=== PATIENT | female | born 1990 | race American Indian/Alaskan Native ===

== ENCOUNTER 2021-11-30 13:12 | Emergency (ER) | payer MEDICAID ==
[2021-11-30] MEDS ORDERED: HYDROcodone/ACETAMINOPHEN 5-325 MG TAB PO ONE (14:51)
[2021-11-30] MEDS ORDERED: CYCLOBENZAPRINE 10 MG TAB PO ONE (14:51)
[2021-11-30] MEDS ORDERED: IBUPROFEN 800 MG TAB PO ONE (14:51)
--- NOTE | 2021-11-30 14:52 | Emergency Department Report ---
ED Upper Extremity Inj HPI - General Chief Complaint: Extremity Injury, Upper Stated Complaint: PAIN/NUMBNESS LT ARM Time Seen by Provider: 11/30/21 14:51 Source: patient, EMS Mode of arrival: Ambulatory Limitations: No Limitations - History of Present Illness Initial Comments: Patient is a 31-year-old female that comes to the emergency room with left arm tingling and neck pain. She states that she woke up like this initially 3 days ago. It gets better during the day but then in the morning she wakes up and she has a stiff neck. She thinks it is the pillow she is sleeping on. Patient has no focal neurodeficit. Cranial nerves are intact. She is ambulatory. No pronator drift. No facial weakness. Tongue is midline. Patient denies chest pain or shortness of breath. Denies abdominal pain or back pain. Denies dysuria or discharge. Patient denies fever or chills. Patient's blood sugar was elevated to 299. She states that she did not take her insulin this morning because she was feeling bad. I have instructed her to take the insulin. She denies any polyuria, polydipsia, abdominal pain. She is not tachycardic and not hypotensive. Complaint: Injury to:: left -: Sudden Other Extremity Injury: Shoulder: Left, Forearm: Left Place: home Improves With: immobilization Worsens With: movement of extremity Associated Symptoms: denies other symptoms - Related Data Previous Rx's Medication Instructions Recorded Last Taken Type Cyclobenzaprine [Flexeril] 10 mg PO TID PRN #10 tablet 11/30/21 Unknown Rx Ibuprofen [Motrin] 800 mg PO Q8HR PRN #30 tablet 11/30/21 Unknown Rx predniSONE [Deltasone] 20 mg PO DAILY #5 tablet 11/30/21 Unknown Rx Allergies Allergy/AdvReac Type Severity Reaction Status Date / Time No Known Allergies Allergy Verified 11/30/21 13:46 ED Review of Systems ROS: Stated complaint: PAIN/NUMBNESS LT ARM Other details as noted in HPI Comment: All other systems reviewed and negative ED Past Medical Hx - Past Medical History Previous Medical History?: Yes Hx Diabetes: Yes - Surgical History Past Surgical History?: No - Family History Family history: no significant - Social History Smoking Status: Never Smoker Substance Use Type: None - Medications Home Medications: Home Medications Medication Instructions Recorded Confirmed Last Taken Type Cyclobenzaprine [Flexeril] 10 mg PO TID PRN #10 tablet 11/30/21 Unknown Rx Ibuprofen [Motrin] 800 mg PO Q8HR PRN #30 tablet 11/30/21 Unknown Rx predniSONE [Deltasone] 20 mg PO DAILY #5 tablet 11/30/21 Unknown Rx ED Physical Exam - General Limitations: No Limitations General appearance: alert, in no apparent distress - Head Head exam: Present: atraumatic, normocephalic - Eye Eye exam: Present: normal appearance - ENT ENT exam: Present: mucous membranes moist - Neck Neck exam: Present: normal inspection - Respiratory Respiratory exam: Present: normal lung sounds bilaterally. Absent: respiratory distress - Cardiovascular Cardiovascular Exam: Present: regular rate, normal rhythm. Absent: systolic murmur, diastolic murmur, rubs, gallop - GI/Abdominal GI/Abdominal exam: Present: soft, normal bowel sounds - Extremities Exam Extremities exam: Present: normal inspection - Back Exam Back exam: Present: normal inspection - Neurological Exam Neurological exam: Present: alert, oriented X3 - Psychiatric Psychiatric exam: Present: normal affect, normal mood - Skin Skin exam: Present: warm, dry, intact, normal color. Absent: rash ED Course Vital Signs 11/30/21 13:45 Temperature 98.1 F Pulse Rate 90 Blood Pressure 150/90 [Left] O2 Sat by Pulse 98 Oximetry ED Medical Decision Making - Medical Decision Making Vital Signs 11/30/21 13:45 Temperature 98.1 F Pulse Rate 90 Blood Pressure 150/90 [Left] O2 Sat by Pulse 98 Oximetry Medicated for pain in the ER. She did get some relief from her pain medicines. I have given her Flexeril, Motrin and [place]. On discharge again patient has full range of motion is neurovascularly intact. Patient discharged home with discharge plan of care including diet, activity, medications and follow-up. She verbalizes understanding of discharge plan. - Differential Diagnosis Torticollis Critical care attestation.: If time is entered above; I have spent that time in minutes in the direct care of this critically ill patient, excluding procedure time. ED Disposition Clinical Impression: Torticollis, History of type 2 diabetes mellitus, Hyperglycemia Disposition: 01 HOME / SELF CARE / HOMELESS Is pt being admited?: No Does the pt Need Aspirin: No Condition: Stable Instructions: Acute Torticollis, Adult Additional Instructions: Warm compresses and baths will help. Medications as ordered today. If pain persist follow-up with PCP. Have given you referral below Take your insulin as prescribed. Referrals: FRANKLIN STROUD MD [Primary Care Provider] - 3-5 Days Time of Disposition: 15:09
[2021-11-30 15:59] VITALS: BP 140/84
== END 2021-11-30 15:59 | disposition home or self-care (01) ==
LOC: ED 13:12
DX: M43.6 Torticollis (principal); E11.65 Type 2 diabetes mellitus with hyperglycemia
CPT/HCPCS: 99283

== ENCOUNTER 2022-02-18 06:26 | Inpatient (IN) | payer MEDICAID ==
[2022-02-18 07:57] LABS: Basophils # (Auto) 0.1 K/mm3 (0.0-0.1); Basophils % (Auto) 0.5 % (0.0-1.8); Lymphocytes # (Auto) 1.5 K/mm3 (1.2-5.4); Lymphocytes % (Auto) 8.7 % (13.4-35.0); Mean Corpuscular HGB Conc 31 % (30-34); Mean Corpuscular Volume 104 fl (79-97); Monocytes # (Auto) 1.2 K/mm3 (0.0-0.8); Monocytes % (Auto) 6.7 % (0.0-7.3); Platelet Count 281 K/mm3 (140-440); Red Blood Count 4.99 M/mm3 (3.65-5.03); Red Cell Distribution Width 13.8 % (13.2-15.2)
[2022-02-18] MEDS ORDERED: fentaNYL 100 MCG/2 ML INJ IV ONE (07:59)
[2022-02-18] MEDS ORDERED: ONDANSETRON 4 MG/2 ML INJ IV ONE (08:00)
[2022-02-18 08:06] LABS: Hematocrit 51.8 % (30.3-42.9); Hemoglobin 16.2 gm/dl (10.1-14.3)
[2022-02-18] MEDS ORDERED: SODIUM CHLORIDE 0.9% 1000 ML 1,000 ML ONE (08:09)
[2022-02-18 08:20] LABS: Bacteria,Urine 1+ /HPF (Negative); Mucus,Urine FEW /HPF
[2022-02-18 08:20] LABS: Albumin 5.1 g/dL (3.9-5); Calcium 9.2 mg/dL (8.4-10.2)
[2022-02-18] MEDS ORDERED: SODIUM CHLORIDE 0.9% 1000 ML 1,000 ML IV ONE ×2 (08:29)
--- NOTE | 2022-02-18 08:38 | Emergency Department Report ---
HPI - General Chief Complaint: Hyperglycemia Time Seen by Provider: 02/18/22 08:13 - HPI HPI: Room 1 Patient 31-year-old female present with a chief complaint of shortness of breath and chest pain. Patient has a history of diabetes and states she ran out of insulin 4 days ago. Patient states since that time she has had sharp substernal chest pain and shortness of breath with has been constant. Patient admits to pleurisy. Patient denies history of cough or fever. Patient admits to polyuria and polydipsia. Patient admits to nausea vomiting ED Past Medical Hx - Past Medical History Previous Medical History?: Yes Hx Diabetes: Yes - Surgical History Past Surgical History?: No Additional Surgical History: Right thumb - Family History Family history: no significant - Social History Smoking Status: Former Smoker (Vape) Substance Use Type: None (Denies illicit drug use), Alcohol (Occasional) - Medications Home Medications: Home Medications Medication Instructions Recorded Confirmed Last Taken Type Cyclobenzaprine [Flexeril] 10 mg PO TID PRN #10 tablet 11/30/21 Unknown Rx Ibuprofen [Motrin] 800 mg PO Q8HR PRN #30 tablet 11/30/21 Unknown Rx predniSONE [Deltasone] 20 mg PO DAILY #5 tablet 11/30/21 Unknown Rx ED Review of Systems ROS: Stated complaint: HIGH BLOOD SUGAR Other details as noted in HPI Constitutional: denies: fever Eyes: denies: eye pain ENT: denies: throat pain Respiratory: shortness of breath. denies: cough Cardiovascular: chest pain Endocrine: no symptoms reported, increased thirst, increased urine Gastrointestinal: nausea, vomiting. denies: abdominal pain Genitourinary: denies: dysuria Musculoskeletal: denies: back pain Neurological: denies: headache Physical Exam - Physical Exam Vital Signs: Vital Signs 02/18/22 02/18/22 02/18/22 06:27 07:16 07:20 Temperature 98 F Pulse Rate 119 H 132 H Respiratory 22 31 H 27 H Rate Blood Pressure 175/81 174/83 O2 Sat by Pulse 100 Oximetry 02/18/22 02/18/22 02/18/22 07:26 07:30 07:36 Temperature Pulse Rate 125 H 122 H 126 H Respiratory 29 H 32 H 31 H Rate Blood Pressure 174/83 182/86 182/86 O2 Sat by Pulse Oximetry 07/11/0702/18/22 02/18/22 07:40 07:45 07:52 Temperature Pulse Rate 123 H 128 H 135 H Respiratory 25 H 35 H 24 Rate Blood Pressure 182/86 182/86 182/86 O2 Sat by Pulse Oximetry 02/18/22 02/18/22 02/18/22 07:56 08:00 08:06 Temperature Pulse Rate 123 H 117 H 120 H Respiratory 25 H 23 27 H Rate Blood Pressure 179/93 179/93 179/93 O2 Sat by Pulse 99 99 99 Oximetry 02/18/22 02/18/22 02/18/22 08:10 08:16 08:19 Temperature Pulse Rate 116 H 115 H Respiratory 24 20 22 Rate Blood Pressure 180/90 180/90 O2 Sat by Pulse 100 99 99 Oximetry 02/18/22 08:20 Temperature Pulse Rate 113 H Respiratory 22 Rate Blood Pressure 182/86 O2 Sat by Pulse 99 Oximetry Physical Exam: GENERAL: The patient is well-developed well-nourished female lying on stretcher appearing to be in mild discomfort. [] HEENT: Normocephalic. Atraumatic. Extraocular motions are intact. Patient has dry mucous membranes. NECK: Supple. Trachea midline CHEST/LUNGS: Clear to auscultation. There is no respiratory distress noted. HEART/CARDIOVASCULAR: Regular. There is tachycardia. There is no gallop rub or murmur. ABDOMEN: Abdomen is soft, nontender. Patient has normal bowel sounds. There is no abdominal distention. SKIN: There is no rash. There is no edema. There is no diaphoresis. NEURO: The patient is awake, alert, and oriented. The patient is cooperative. The patient has no focal neurologic deficits. The patient has normal speech. GCS 15 MUSCULOSKELETAL: There is no evidence of acute injury. ED Course Vital Signs 02/18/22 02/18/22 02/18/22 06:27 07:16 07:20 Temperature 98 F Pulse Rate 119 H 132 H Respiratory 22 31 H 27 H Rate Blood Pressure 175/81 174/83 O2 Sat by Pulse 100 Oximetry 02/18/22 02/18/22 02/18/22 07:26 07:30 07:36 Temperature Pulse Rate 125 H 122 H 126 H Respiratory 29 H 32 H 31 H Rate Blood Pressure 174/83 182/86 182/86 O2 Sat by Pulse Oximetry 02/18/22 02/18/2202/18/22 07:40 07:45 07:52 Temperature Pulse Rate 123 H 128 H 135 H Respiratory 25 H 35 H 24 Rate Blood Pressure 182/86 182/86 182/86 O2 Sat by Pulse Oximetry 02/18/22 02/18/22 02/18/22 07:56 08:00 08:06 Temperature Pulse Rate 123 H 117 H 120 H Respiratory 25 H 23 27 H Rate Blood Pressure 179/93 179/93 179/93 O2 Sat by Pulse 99 99 99 Oximetry 02/18/22 02/18/22 02/18/22 08:10 08:16 08:19 Temperature Pulse Rate 116 H 115 H Respiratory 24 20 22 Rate Blood Pressure 180/90 180/90 O2 Sat by Pulse 100 99 99 Oximetry 02/18/22 08:20 Temperature Pulse Rate 113 H Respiratory 22 Rate Blood Pressure 182/86 O2 Sat by Pulse 99 Oximetry ED Medical Decision Making - Lab Data Result diagrams: 02/18/22 07:32 02/18/22 07:32 Laboratory Tests 02/18/22 02/18/22 02/18/22 06:58 07:32 07:32 WBC 17.4 H RBC 4.99 Hgb 16.2 H Hct 51.8 H MCV 104 H MCH 33 H MCHC 31 RDW 13.8 Plt Count 281 Lymph % (Auto) 8.7 L [place] % (Auto) 6.7 Eos % (Auto) 0.0 Baso % (Auto) 0.5 Lymph # (Auto) 1.5 [place] # (Auto) 1.2 H Eos # (Auto) 0.0 Baso # (Auto) 0.1 Seg Neutrophils % 84.1 H Seg Neutrophils # 14.7 H VBG pH Sodium 125 L Potassium 6.4 H* Chloride 90.7 L Carbon Dioxide 5 L* Anion Gap 36 BUN 22 H Creatinine 1.3 H Estimated GFR 57 BUN/Creatinine Ratio 17 Glucose 602 H* POC Glucose 556 H Calcium 9.2 Total Bilirubin 0.20 AST 14 ALT 14 Alkaline Phosphatase 152 H Total Protein 9.1 H Albumin 5.1 H Albumin/Globulin Ratio 1.3 HCG, Qual Urine Color Urine Turbidity Urine pH Ur Specific [place] Urine Protein Urine Glucose (UA) Urine Ketones Urine Blood Urine Nitrite Ur Reducing Substances Urine Bilirubin Urine Ictotest Urine Urobilinogen Ur Leukocyte Esterase Urine WBC (Auto) Urine RBC (Auto) U Epithel Cells (Auto) Urine Bacteria (Auto) Urine Mucus 02/18/22 02/18/22 02/18/22 07:32 07:32 07:54 WBC RBC Hgb Hct MCV MCH MCHC RDW Plt Count Lymph % (Auto) [place] % (Auto) Eos % (Auto) Baso % (Auto) Lymph # (Auto) [place] # (Auto) Eos # (Auto) Baso # (Auto) Seg Neutrophils % Seg Neutrophils # VBG pH 6.942 L* Sodium Potassium Chloride Carbon Dioxide Anion Gap BUN Creatinine Estimated GFR BUN/Creatinine Ratio Glucose POC Glucose Calcium Total Bilirubin AST ALT Alkaline Phosphatase Total Protein Albumin Albumin/Globulin Ratio HCG, Qual Negative Urine Color Straw Urine Turbidity Clear Urine pH 5.0 Ur Specific [place] 1.025 Urine Protein 100 mg/dl Urine Glucose (UA) 500 Urine Ketones Negative Urine Blood Negative Urine Nitrite Negative Ur Reducing Substances Not Reportable Urine Bilirubin Negative Urine Ictotest Not Reportable Urine Urobilinogen < 2.0 Ur Leukocyte Esterase Negative Urine WBC (Auto) 1.0 Urine RBC (Auto) 1.0 U Epithel Cells (Auto) 2.0 Urine Bacteria (Auto) 1+ Urine Mucus Few - EKG Data -: EKG Interpreted by Me EKG shows normal: sinus rhythm Rate: tachycardia (116 bpm) - EKG Data Interpretation: nonspecific ST-T wave gina (Biphasic T waves lead III) - Radiology Data Radiology results: report reviewed (Chest x-ray, VQ scan), image reviewed (Chest x-ray, VQ scan) interpreted by me: Chest x-ray-no definite focal infiltrates, no pneumothorax VQ scan (read by radiologist)-low probability [facility] [address] [place] [address] XRay Report Signed Patient: NO RODRIGUEZ MR#: [id number] : 1990 Acct:[id number] Age/Sex: 31 / F ADM Date: 02/18/22 Loc: ED Attending Dr: Ordering Physician: ELIGIO PATEL MD Date of Service: 02/18/22 Procedure(s): XR chest 1V ap Accession Number(s): [id number] cc: ELIGIO PATEL MD Fluoro Time In Minutes: CHEST 1 VIEW INDICATION / CLINICAL INFORMATION: chest pain, shortness of breath. COMPARISON: None available. FINDINGS: SUPPORT DEVICES: None. HEART / MEDIASTINUM: No significant abnormality. LUNGS / PLEURA: No significant pulmonary or pleural abnormality. No pneumothorax. ADDITIONAL FINDINGS: No significant additional findings. IMPRESSION: 1. No acute findings. Signer Name: Vandana Olson MD Signed: 02/18/2022 9:01 AM Workstation Name: [id number] Transcribed By: JR Dictated By: Vandana Olson MD Electronically Authenticated By: Vandana Olson MD Signed Date/Time: 02/18/22900 DD/ 0 TD/TT: - Differential Diagnosis DKA, PE, pericarditis, GERD, ACS, costochondritis Critical care attestation.: If time is entered above; I have spent that time in minutes in the direct care of this critically ill patient, excluding procedure time. ED Disposition Clinical Impression: DKA (diabetic ketoacidosis), Chest pain Disposition: ADMITTED INPATIENT Is pt being admited?: Yes Does the pt Need Aspirin: No Condition: Fair Instructions: Nonspecific Chest Pain, Adult, Diabetic Ketoacidosis (ED) Time of Disposition: 11:00 (Care transferred to hospitalist (Dr. Kemp)) Heart Score - HEART Score History: Slightly suspicious EKG: Non-specific Age: < 45 Risk factors: 1-2 risk factors Troponin: < normal limit HEART Score: 2 - EKG Read Time Time EKG Completed: 08:50 EKG Read Time: 08:55
[2022-02-18 08:55] LABS: Bilirubin,Urine Negative (Negative); Blood,Urine Negative (Negative); Color,Urine Straw (Yellow)
[2022-02-18 08:56] LABS: Urobilinogen,Urine < 2.0 mg/dL (<2.0)
--- NOTE | 2022-02-18 09:05 | XRay Report ---
CHEST 1 VIEW INDICATION / CLINICAL INFORMATION: chest pain, shortness of breath. COMPARISON: None available. FINDINGS: SUPPORT DEVICES: None. HEART / MEDIASTINUM: No significant abnormality. LUNGS / PLEURA: No significant pulmonary or pleural abnormality. No pneumothorax. ADDITIONAL FINDINGS: No significant additional findings. IMPRESSION: 1. No acute findings. Signer Name: Vandana Olson MD Signed: 02/18/2022 9:01 AM Workstation Name: [id number]
[2022-02-18] MEDS ORDERED: INSULIN REGULAR, HUMAN 100 UNITS in SODIUM CHLORIDE 0.9% 99 ML IV SCH (10:00)
--- NOTE | 2022-02-18 10:10 | Nuclear Medicine Report ---
NUCLEAR MEDICINE PERFUSION LUNG SCAN INDICATION / CLINICAL INFORMATION: Chest pain, shortness of breath. TECHNIQUE: 5.2 mCi of Tc-99m MAA were given by IV. COMPARISON: Chest radiograph dated 02/18/2022. FINDINGS: PERFUSION: No significant perfusion defects. ADDITIONAL FINDINGS: None. IMPRESSION: 1. Low probability for pulmonary embolism. Signer Name: Vandana Olson MD Signed: 02/18/2022 10:06 AM Workstation Name: [id number]
[2022-02-18 13:09] LABS: BUN/Creatinine Ratio 22; Blood Urea Nitrogen 20 mg/dL (7-17); Calcium 8.5 mg/dL (8.4-10.2); Hemolysis Index 19
[2022-02-18] MEDS ORDERED: METOCLOPRAMIDE 10 MG/2 ML INJ IV PRN (15:37)
[2022-02-18] MEDS ORDERED: ONDANSETRON 4 MG/2 ML INJ IV PRN (15:37)
[2022-02-18] MEDS ORDERED: ACETAMINOPHEN 325 MG TAB PO PRN (15:37)
[2022-02-18] MEDS ORDERED: MORPHINE 2 MG/1 ML INJ IV PRN (15:37)
[2022-02-18] MEDS ORDERED: POTASSIUM CHLORIDE 10 MEQ 10 MEQ/100 ML BAG IV PRN ×2 (15:43)
[2022-02-18] MEDS ORDERED: DEXTROSE 50% IN WATER (25GM) 50 ML SYRINGE IV PRN (15:43)
--- NOTE | 2022-02-18 15:58 | History and Physical Report ---
History of Present Illness Date of examination: 02/18/22 Date of admission: 02/18/2022 Chief complaint: Actual sensorium since a.m. History of present illness: 31-year-old -[place] female with type 1 diabetes comes in for shortness of breath and chest pain. Patient has not been taking her insulin for the last 4 days because she ran out of insulin. Patient had recent nausea and vomiting. Also intermittent chest pain. Also polyuria and polydipsia. After sensorium since a.m. Responds to sternal rub and wakes up. No active vomiting in the emergency room. - Past Medical History --Previous Medical History?: Yes --Diabetes: Yes - Surgical History --Past Surgical History?: No --Additional Surgical History: Right thumb - Family History --Family history: no significant - Social History --Smoking Status: Former Smoker (Vape) --Substance Use Type: None (Denies illicit drug use), Alcohol (Occasional) - Medications --Home Medications: Home Medications Medication Instructions Recorded Confirmed Last Taken Type Cyclobenzaprine [Flexeril] 10 mg PO TID PRN #10 tablet 11/30/21 Unknown Rx Ibuprofen [Motrin] 800 mg PO Q8HR PRN #30 tablet 11/30/21 Unknown Rx predniSONE [Deltasone] 20 mg PO DAILY #5 tablet 11/30/21 Unknown Rx Review of Systems ROS: Stated complaint: HIGH BLOOD SUGAR Other details as noted in HPI Constitutional: denies: fever Eyes: denies: eye pain ENT: denies: throat pain Respiratory: shortness of breath. denies: cough Cardiovascular: chest pain Endocrine: no symptoms reported, increased thirst, increased urine Gastrointestinal: nausea, vomiting. denies: abdominal pain Genitourinary: denies: dysuria Musculoskeletal: denies: back pain Neurological: denies: headache Medications and Allergies Allergies Allergy/AdvReac Type Severity Reaction Status Date / Time No Known Allergies Allergy Verified 11/30/21 13:46 Home Medications Medication Instructions Recorded Confirmed Last Taken Type Cyclobenzaprine [Flexeril] 10 mg PO TID PRN #10 tablet 11/30/21 Unknown Rx Ibuprofen [Motrin] 800 mg PO Q8HR PRN #30 tablet 11/30/21 Unknown Rx predniSONE [Deltasone] 20 mg PO DAILY #5 tablet 11/30/21 Unknown Rx Active Meds: Active Medications Insulin Human Regular 100 (units/ Sodium Chloride) 100 mls @ 6 mls/hr IV TITR NEMESIO; Protocol Last Titration: 02/18/22 14:44 Dose: 5 units/hr, 5 mls/hr Exam - Constitutional Vitals: Temp Pulse Resp BP Pulse Ox 98 F 113 H 22 143/83 100 02/18/22 06:27 02/18/22 13:40 02/18/22 13:40 02/18/22 13:40 02/18/22 13:40 General appearance: Present: mild distress, well-nourished - EENT Eyes: Present: PERRL ENT: hearing intact, clear oral mucosa - Neck Neck: Present: supple, normal ROM - Respiratory Respiratory effort: normal Respiratory: bilateral: CTA - Cardiovascular Heart rate: 78 Rhythm: regular Heart Sounds: Present: S1 & S2. Absent: rub, click - Extremities Extremities: pulses symmetrical, No edema Peripheral Pulses: within normal limits - Abdominal General gastrointestinal: Present: soft, non-tender, non-distended, normal bowel sounds Female genitourinary: Present: normal - Integumentary Integumentary: Present: clear, warm, dry - Musculoskeletal Musculoskeletal: generalized weakness - Psychiatric Psychiatric: agitated, other (Altered sensorium) - Neurologic Neurologic: CNII-XII intact, moves all extremities - Allied Health Allied health notes reviewed: nursing, case management HEART Score - HEART Score EKG: Non-specific Age: < 45 Risk factors: 1-2 risk factors Troponin: < normal limit Results - Labs CBC & Chem 7: 02/18/22 07:32 02/19/22 01:16 Labs: Laboratory Last Values WBC 17.4 K/mm3 (4.5-11.0) H 02/18/22 07:32 RBC 4.99 M/mm3 (3.65-5.03) 02/18/22 07:32 Hgb 16.2 gm/dl (10.1-14.3) H 02/18/22 07:32 Hct 51.8 % (30.3-42.9) H 02/18/22 07:32 MCV 104 fl (79-97) H 02/18/22 07:32 MCH 33 pg (28-32) H 02/18/22 07:32 MCHC 31 % (30-34) 02/18/22 07:32 RDW 13.8 % (13.2-15.2) 02/18/22 07:32 Plt Count 281 K/mm3 (140-440) 02/18/22 07:32 Lymph % (Auto) 8.7 % (13.4-35.0) L 02/18/22 07:32 [place] % (Auto) 6.7 % (0.0-7.3) 02/18/22 07:32 Eos % (Auto) 0.0 % (0.0-4.3) 02/18/22 07:32 Baso % (Auto) 0.5 % (0.0-1.8) 02/18/22 07:32 Lymph # (Auto) 1.5 K/mm3 (1.2-5.4) 02/18/22 07:32 [place] # (Auto) 1.2 K/mm3 (0.0-0.8) H 02/18/22 07:32 Eos # (Auto) 0.0 K/mm3 (0.0-0.4) 02/18/22 07:32 Baso # (Auto) 0.1 K/mm3 (0.0-0.1) 02/18/22 07:32 Seg Neutrophils % 84.1 % (40.0-70.0) H 02/18/22 07:32 Seg Neutrophils # 14.7 K/mm3 (1.8-7.7) H 02/18/22 07:32 VBG pH 6.942 (7.320-7.420) L* 02/18/22 07:32 Sodium 129 mmol/L (137-145) L 02/18/22 11:59 Potassium 5.5 mmol/L (3.6-5.0) H 02/18/22 11:59 Chloride 100.5 mmol/L (98-107) 02/18/22 11:59 Carbon Dioxide 3 mmol/L (22-30) L* 02/18/22 11:59 Anion Gap 31 mmol/L 02/18/22 11:59 BUN 20 mg/dL (7-17) H 02/18/22 11:59 Creatinine 0.9 mg/dL (0.6-1.2) 02/18/22 11:59 Estimated GFR > 60 ml/min 02/18/22 11:59 BUN/Creatinine Ratio 22 % 02/18/22 11:59 Glucose 422 mg/dL (65-100) H 02/18/22 11:59 POC Glucose 267 mg/dL (70-105) H 02/18/22 14:42 Calcium 8.5 mg/dL (8.4-10.2) 02/18/22 11:59 Phosphorus 3.80 mg/dL (2.5-4.5) 02/18/22 11:59 Magnesium 2.30 mg/dL (1.7-2.3) 02/18/22 11:59 Total Bilirubin 0.20 mg/dL (0.1-1.2) 02/18/22 07:32 AST 14 units/L (5-40) 02/18/22 07:32 ALT 14 units/L (7-56) 02/18/22 07:32 Alkaline Phosphatase 152 units/L (35-129) H 02/18/22 07:32 Total Protein 9.1 g/dL (6.3-8.2) H 02/18/22 07:32 Albumin 5.1 g/dL (3.9-5) H 02/18/22 07:32 Albumin/Globulin Ratio 1.3 % 02/18/22 07:32 HCG, Qual Negative (Negative) 02/18/22 07:32 Urine Color Straw (Yellow) 02/18/22 07:54 Urine Turbidity Clear (Clear) 02/18/22 07:54 Urine pH 5.0 (5.0-7.0) 02/18/22 07:54 Ur Specific [place] 1.025 (1.003-1.030) 02/18/22 07:54 Urine Protein 100 mg/dl mg/dL (Negative) 02/18/22 07:54 Urine Glucose (UA) 500 mg/dL (Negative) 02/18/22 07:54 Urine Ketones Negative mg/dL (Negative) 02/18/22 07:54 Urine Blood Negative (Negative) 02/18/22 07:54 Urine Nitrite Negative (Negative) 02/18/22 07:54 Ur Reducing Substances Not Reportable 02/18/22 07:54 Urine Bilirubin Negative (Negative) 02/18/22 07:54 Urine Ictotest Not Reportable 02/18/22 07:54 Urine Urobilinogen < 2.0 mg/dL (<2.0) 02/18/22 07:54 Ur Leukocyte Esterase Negative (Negative) 02/18/22 07:54 Urine WBC (Auto) 1.0 /HPF (0.0-6.0) 02/18/22 07:54 Urine RBC (Auto) 1.0 /HPF (0.0-6.0) 02/18/22 07:54 U Epithel Cells (Auto) 2.0 /HPF (0-13.0) 02/18/22 07:54 Urine Bacteria (Auto) 1+ /HPF (Negative) 02/18/22 07:54 Urine Mucus Few /HPF 02/18/22 07:54 Short CBC 02/18/22 Range/Units 07:32 WBC 17.4 H (4.5-11.0) K/mm3 Hgb 16.2 H (10.1-14.3) gm/dl Hct 51.8 H (30.3-42.9) % Plt Count 281 (140-440) K/mm3 BMP 02/18/22 02/18/22 02/18/22 07:32 11:59 17:09 Sodium 125 L 129 L 133 L Potassium 6.4 H* 5.5 H 5.0 Chloride 90.7 L 100.5 105.1 Carbon Dioxide 5 L* 3 L* 5 L* BUN 22 H 20 H 16 Creatinine 1.3 H 0.9 0.9 Glucose 602 H* 422 H 235 H Calcium 9.2 8.5 9.0 02/19/22 01:16 Sodium 136 L Potassium 3.6 D Chloride 108.2 H Carbon Dioxide 16 L D BUN 15 Creatinine 0.7 Glucose 114 H Calcium 8.9 Liver Function 02/18/22 Range/Units 07:32 Total Bilirubin 0.20 (0.1-1.2) mg/dL AST 14 (5-40) units/L ALT 14 (7-56) units/L Alkaline Phosphatase 152 H (35-129) units/L Albumin 5.1 H (3.9-5) g/dL Urine 02/18/22 Range/Units 07:54 Urine Color Straw (Yellow) Urine pH 5.0 (5.0-7.0) Ur Specific [place] 1.025 (1.003-1.030) Urine Protein 100 mg/dl (Negative) mg/dL Urine Glucose (UA) 500 (Negative) mg/dL - Imaging and Cardiology CT scan - chest: report reviewed Imaging and Cardiology: Chest x-ray No acute findings Assessment and Plan Assessment and plan: Critical care statement The high probability OF a clinically significant sudden or life-threatening deterioration of the cardiorespiratory system and endocrine system required my full and direct attention, intervention and postoperative management. The aggregate critical care time was 40 minutes. The time is in addition to time s pent performing reported procedures but includes the followin: Data review and interpretation 2: Patient assessment and monitoring of vital signs 3: Documentation 4:: Medication orders and management Advance Directives: Yes (Full code) VTE prophylaxis?: Chemical Plan of care discussed with patient/family: Yes - Patient Problems (1) Acute metabolic encephalopathy Current Visit: Yes Status: Acute Plan to address problem: Secondary to metabolic acidosis which is severe and severe hyperglycemia IV insulin and IV fluids for now Frequent monitoring of electrolytes Sodium bicarb given (2) DKA (diabetic ketoacidosis) Current Visit: Yes Status: Acute Qualifiers: Diabetes mellitus type: type 1 Plan to address problem: DKA protocol Noncompliance for 4 days IV insulin drip IV fluids IV bicarb Monitor electrolytes closely (3) Hyponatremia Current Visit: Yes Status: Acute Plan to address problem: Secondary to high glucose levels Should correct with correction of blood glucose levels (4) Hyperkalemia Current Visit: Yes Status: Acute Plan to address problem: Secondary to DKA and hyperglycemia Should correct with IV insulin and IV fluids No potassium for the time being (5) CIARA (acute kidney injury) Current Visit: Yes Status: Acute Plan to address problem: Secondary to vasomotor nephropathy IV fluids for now (6) Metabolic acidosis Current Visit: Yes Status: Acute Plan to address problem: Severe Sodium bicarb given (7) Leukocytosis Current Visit: Yes Status: Acute Qualifiers: Leukocytosis type: unspecified Qualified Code(s): D72.829 - Elevated white blood cell count, unspecified Plan to address problem: Possible demargination No focus of infection Will initiate antibiotics if necessary (8) DVT prophylaxis Current Visit: Yes Status: Acute Plan to address problem: On anticoagulation GI prophylaxis (9) Advance care planning Current Visit: Yes Status: Acute Plan to address problem: Disease education conducted. Care plan discussed, diagnosis discussed, prognosis discussed, patient is full code. Patient acknowledges understanding and agreement with care plan. +30 minutes.
[2022-02-18] MEDS ORDERED: D5W/0.9% NACL 1,000 ML IV SCH (16:00)
[2022-02-18] MEDS: FAMOTIDINE 20 MG/2 ML INJ IV SCH (16:30)
[2022-02-18] MEDS ORDERED: SODIUM BICARB 8.4% 50 MEQ/50 ML SYRINGE IV ONE ×2 (17:00→22:00)
[2022-02-18] MEDS: HEPARIN 5,000 UNIT/1 ML VIAL SUB-Q SCH (17:10)
[2022-02-18 17:46] LABS: BUN/Creatinine Ratio 18; Blood Urea Nitrogen 16 mg/dL (7-17); Hemolysis Index 46
[2022-02-19 01:47] LABS: Blood Urea Nitrogen 15 mg/dL (7-17); Calcium 8.9 mg/dL (8.4-10.2); Hemolysis Index 3
[2022-02-19 01:50] LABS: BUN/Creatinine Ratio 21
[2022-02-19] MEDS: HEPARIN 5,000 UNIT/1 ML VIAL SUB-Q SCH ×2 (03:00→18:27)
[2022-02-19] MEDS ORDERED: D5W/0.45% NACL/KCL 20 MEQ 20 MEQ/1,000 ML BAG IV SCH (09:00)
--- NOTE | 2022-02-19 09:04 | Progress Note ---
Assessment and Plan Assessment and plan: (1) Acute metabolic encephalopathy Current Visit: Yes Status: Acute Plan to address problem: Secondary to metabolic acidosis which is severe and severe hyperglycemia IV insulin and IV fluids for now Frequent monitoring of electrolytes Sodium bicarb given (2) DKA (diabetic ketoacidosis) Current Visit: Yes Status: Acute Qualifiers: Diabetes mellitus type: type 1 Plan to address problem: DKA protocol Noncompliance for 4 days IV insulin drip IV fluids IV bicarb Monitor electrolytes closely (3) Hyponatremia Current Visit: Yes Status: Acute Plan to address problem: Secondary to high glucose levels Should correct with correction of blood glucose levels (4) Hyperkalemia Current Visit: Yes Status: Acute Plan to address problem: Secondary to DKA and hyperglycemia Should correct with IV insulin and IV fluids No potassium for the time being (5) CIARA (acute kidney injury) Current Visit: Yes Status: Acute Plan to address problem: Secondary to vasomotor nephropathy IV fluids for now (6) Metabolic acidosis Current Visit: Yes Status: Acute Plan to address problem: Severe Sodium bicarb given (7) Leukocytosis Current Visit: Yes Status: Acute Qualifiers: Leukocytosis type: unspecified Qualified Code(s): D72.829 - Elevated white blood cell count, unspecified Plan to address problem: Possible demargination No focus of infection Will initiate antibiotics if necessary (8) DVT prophylaxis Current Visit: Yes Status: Acute Plan to address problem: On anticoagulation GI prophylaxis (9) Advance care planning Current Visit: Yes Status: Acute Plan to address problem: Disease education conducted. Care plan discussed, diagnosis discussed, prognosis discussed, patient is full code. Patient acknowledges understanding and agreement with care plan. +30 minutes. Hospitalist Physical - Constitutional Vitals: Temp Pulse Resp BP Pulse Ox 98 F 80 15 112/74 99 02/18/22 06:27 02/19/22 06:20 02/19/22 06:20 02/19/22 06:20 02/19/22 06:20 General appearance: Present: mild distress, well-nourished HEART Score - HEART Score EKG: Non-specific Age: < 45 Risk factors: 1-2 risk factors Troponin: < normal limit Results - Labs CBC & Chem 7: 02/18/22 07:32 02/19/22 01:16 Labs: Laboratory Last Values WBC 17.4 K/mm3 (4.5-11.0) H 02/18/22 07:32 RBC 4.99 M/mm3 (3.65-5.03) 02/18/22 07:32 Hgb 16.2 gm/dl (10.1-14.3) H 02/18/22 07:32 Hct 51.8 % (30.3-42.9) H 02/18/22 07:32 MCV 104 fl (79-97) H 02/18/22 07:32 MCH 33 pg (28-32) H 02/18/22 07:32 MCHC 31 % (30-34) 02/18/22 07:32 RDW 13.8 % (13.2-15.2) 02/18/22 07:32 Plt Count 281 K/mm3 (140-440) 02/18/22 07:32 Lymph % (Auto) 8.7 % (13.4-35.0) L 02/18/22 07:32 [place] % (Auto) 6.7 % (0.0-7.3) 02/18/22 07:32 Eos % (Auto) 0.0 % (0.0-4.3) 02/18/22 07:32 Baso % (Auto) 0.5 % (0.0-1.8) 02/18/22 07:32 Lymph # (Auto) 1.5 K/mm3 (1.2-5.4) 02/18/22 07:32 [place] # (Auto) 1.2 K/mm3 (0.0-0.8) H 02/18/22 07:32 Eos # (Auto) 0.0 K/mm3 (0.0-0.4) 02/18/22 07:32 Baso # (Auto) 0.1 K/mm3 (0.0-0.1) 02/18/22 07:32 Seg Neutrophils % 84.1 % (40.0-70.0) H 02/18/22 07:32 Seg Neutrophils # 14.7 K/mm3 (1.8-7.7) H 02/18/22 07:32 VBG pH 6.942 (7.320-7.420) L* 02/18/22 07:32 Sodium 136 mmol/L (137-145) L 02/19/22 01:16 Potassium 3.6 mmol/L (3.6-5.0) D 02/19/22 01:16 Chloride 108.2 mmol/L (98-107) H 02/19/22 01:16 Carbon Dioxide 16 mmol/L (22-30) L D 02/19/22 01:16 Anion Gap 15 mmol/L 02/19/22 01:16 BUN 15 mg/dL (7-17) 02/19/22 01:16 Creatinine 0.7 mg/dL (0.6-1.2) 02/19/22 01:16 Estimated GFR > 60 ml/min 02/19/22 01:16 BUN/Creatinine Ratio 21 % 02/19/22 01:16 Glucose 114 mg/dL (65-100) H 02/19/22 01:16 POC Glucose 141 mg/dL (70-105) H 02/19/22 08:23 Calcium 8.9 mg/dL (8.4-10.2) 02/19/22 01:16 Phosphorus 2.50 mg/dL (2.5-4.5) D 02/18/22 17:09 Magnesium 2.00 mg/dL (1.7-2.3) 02/18/22 17:09 Total Bilirubin 0.20 mg/dL (0.1-1.2) 02/18/22 07:32 AST 14 units/L (5-40) 02/18/22 07:32 ALT 14 units/L (7-56) 02/18/22 07:32 Alkaline Phosphatase 152 units/L (35-129) H 02/18/22 07:32 Total Protein 9.1 g/dL (6.3-8.2) H 02/18/22 07:32 Albumin 5.1 g/dL (3.9-5) H 02/18/22 07:32 Albumin/Globulin Ratio 1.3 % 02/18/22 07:32 HCG, Qual Negative (Negative) 02/18/22 07:32 Urine Color Straw (Yellow) 02/18/22 07:54 Urine Turbidity Clear (Clear) 02/18/22 07:54 Urine pH 5.0 (5.0-7.0) 02/18/22 07:54 Ur Specific [place] 1.025 (1.003-1.030) 02/18/22 07:54 Urine Protein 100 mg/dl mg/dL (Negative) 02/18/22 07:54 Urine Glucose (UA) 500 mg/dL (Negative) 02/18/22 07:54 Urine Ketones Negative mg/dL (Negative) 02/18/22 07:54 Urine Blood Negative (Negative) 02/18/22 07:54 Urine Nitrite Negative (Negative) 02/18/22 07:54 Ur Reducing Substances Not Reportable 02/18/22 07:54 Urine Bilirubin Negative (Negative) 02/18/22 07:54 Urine Ictotest Not Reportable 02/18/22 07:54 Urine Urobilinogen < 2.0 mg/dL (<2.0) 02/18/22 07:54 Ur Leukocyte Esterase Negative (Negative) 02/18/22 07:54 Urine WBC (Auto) 1.0 /HPF (0.0-6.0) 02/18/22 07:54 Urine RBC (Auto) 1.0 /HPF (0.0-6.0) 02/18/22 07:54 U Epithel Cells (Auto) 2.0 /HPF (0-13.0) 02/18/22 07:54 Urine Bacteria (Auto) 1+ /HPF (Negative) 02/18/22 07:54 Urine Mucus Few /HPF 02/18/22 07:54 Active Medications - Current Medications Current Medications: Generic Name Dose Route Start Last Admin Trade Name Freq PRN Reason Stop Dose Admin Acetaminophen 650 mg 02/18/22 15:37 Acetaminophen 325 Mg Tab PO Q4H PRN Pain MILD(1-3)/Fever >100.5/MEEK Dextrose 0 ml 02/18/22 15:43 Dextrose 50% In Water (25gm) 50 Ml Syringe IV Q30MIN PRN Hypoglycemia Protocol Famotidine 20 mg 02/18/22 16:00 02/18/22 16:30 Famotidine 20 Mg/2 Ml Inj IV 20 mg BID NEMESIO Administration Heparin Sodium (Porcine) 5,000 unit 02/18/22 15:45 02/19/22 03:00 Heparin 5,000 Unit/1 Ml Vial SUB-Q 5,000 unit Q12HR NEMESIO Administration Insulin Human Regular 100 100 mls @ 6 mls/hr 02/18/22 10:00 02/19/22 08:24 units/ Sodium Chloride IV 2 units/hr TITR NEMESIO 2 mls/hr Titration Protocol 6 UNITS/HR Potassium Chloride 10 meq in 100 mls @ 100 mls/hr 02/18/22 15:43 Kcl 10meq/100ml IV Q1H PRN LOW Potassium Levels Potassium Chloride/Dextrose/Sod Cl 20 meq in 1,000 mls @ 125 mls/hr 02/19/22 09:00 D5w/0.45% Nacl/Kcl 20 Meq IV DIRECT NEMESIO Metoclopramide HCl 10 mg 02/18/22 15:37 Metoclopramide 10 Mg/2 Ml Inj IV Q6H PRN Nausea And Vomiting Morphine Sulfate 2 mg 02/18/22 15:37 Morphine 2 Mg/1 Ml Inj IV Q4H PRN Pain, Moderate (4-6) Sodium Chloride 10 ml 02/18/22 22:00 Sodium Chloride 0.9% 10 Ml Flush Syringe IV BID NEMESIO Sodium Chloride 10 ml 02/18/22 15:37 Sodium Chloride 0.9% 10 Ml Flush Syringe IV PRN PRN LINE FLUSH
[2022-02-19 10:38] LABS: Blood Urea Nitrogen 16 mg/dL (7-17); Hemolysis Index 16
[2022-02-19 10:43] LABS: BUN/Creatinine Ratio 27
[2022-02-19] MEDS ORDERED: INSULIN GLARGINE 100 UNITS/ML SUB-Q NR (10:57)
[2022-02-19] MEDS ORDERED: DEXTROSE 50% IN WATER (25GM) 50 ML SYRINGE IV PRN (11:00)
[2022-02-19] MEDS: INSULIN LISPRO 100 UNIT/ML SUB-Q SCH ×3 (11:37→23:55)
--- NOTE | 2022-02-19 12:44 | Discharge Summary ---
Providers - Providers Date of Admission: 02/18/22 15:37 Date of discharge: 02/19/22 Attending physician: JOSE PENALOZA MD 02/18/22 15:39 Consult to Dietitian/Nutrition [CONS] Routine Physician Instructions: Reason For Exam: Reason for Consult: Diet education Primary care physician: FRANKLIN STROUD Hospitalization Reason for admission: nausea Condition: Fair Hospital course: History of Present Illness Per admitting doctor: 31-year-old -Citizen Of [place] female with type 1 diabetes comes in for shortness of breath and chest pain. Patient has not been taking her insulin for the last 4 days because she ran out of insulin. Patient had recent nausea and vomiting. Also intermittent chest pain. Also polyuria and polydipsia. After sensorium since a.m. Responds to sternal rub and wakes up. No active vomiting in the emergency room. Hospital Course: Patient was admitted for acute metabolic encephalopathy and diabetic ketoacidosis. Blood sugar on admission was 602, bicarbonate 5, potassium 6.4. Patient also noted to have slightly decreased renal function with a creatinine of 1.3 and GFR 57. Etiology of metabolic derangements and encephalopathy believed to be due to Diabetic ketoacidosis. Patient was resuscitated with IV fluids, initiated on IV insulin, given bicarbonate for metabolic acidosis. She subsequently improved. By the time of her discharge patient was alert and oriented x4. She stated that her symptoms of nausea and vomiting had abated and she was able to tolerated diabetic diet. Blood sugar 175. Metabolic derangements were all addressed. Patient stated that she had run out of her insulin and had recently gotten a prescription for Basaglar on Saturday. However at this point it was too late at this point as patient was experiencing symptoms. She does not need any medications on discharge. She was advised to resume her home medications per her primary care doctor. She was advised to follow-up with her primary care doctor in 3 to 5 days. Assessment and plan: (1) Acute metabolic encephalopathy Current Visit: Yes Status: Acute Plan to address problem: Secondary to metabolic acidosis which is severe and severe hyperglycemia IV insulin and IV fluids for now Frequent monitoring of electrolytes Sodium bicarb given (2) DKA (diabetic ketoacidosis) Current Visit: Yes Status: Acute Qualifiers: Diabetes mellitus type: type 1 Plan to address problem: DKA protocol Noncompliance for 4 days IV insulin drip IV fluids IV bicarb Monitor electrolytes closely Now resolved (3) Hyponatremia Current Visit: Yes Status: Acute Plan to address problem: Secondary to high glucose levels Should correct with correction of blood glucose levels Resolved (4) Hyperkalemia Current Visit: Yes Status: Acute Plan to address problem: Secondary to DKA and hyperglycemia Should correct with IV insulin and IV fluids Improved, resolved (5) CIARA (acute kidney injury) due to vasomotor nephropathy Current Visit: Yes Status: Acute Plan to address problem: Secondary to vasomotor nephropathy IV fluids for now Now resolved. (6) Metabolic acidosis Current Visit: Yes Status: Acute Plan to address problem: Severe Sodium bicarb given Resolved resolved (7) Leukocytosis Current Visit: Yes Status: Acute Qualifiers: Leukocytosis type: unspecified Qualified Code(s): D72.829 - Elevated white blood cell count, unspecified Plan to address problem: Possible demargination No focus of infection Will initiate antibiotics if necessary Resolved (8) DVT prophylaxis Current Visit: Yes Status: Acute Plan to address problem: On anticoagulation GI prophylaxis (9) Advance care planning Current Visit: Yes Status: Acute Plan to address problem: Disease education conducted. Care plan discussed, diagnosis discussed, prognosis discussed, patient is full code. Patient acknowledges understanding and agreement with care plan. +30 minutes. Disposition: 01 HOME / SELF CARE / HOMELESS Final Discharge Diagnosis (Prints w/discharge instructions): Diabetic ketoacidosis Time spent for discharge: 25 Core Measure Documentation - Palliative Care Palliative Care/ Comfort Measures: Not Applicable - Core Measures Any of the following diagnoses?: none Exam - Physical Exam Narrative exam: Physical Exam: VITAL SIGNS: Reviewed. GENERAL: The patient appears normally developed, Vital signs as documented. Not in any distress HEAD: No signs of head trauma. EYES: Pupils are equal. Extraocular motions intact. EARS: Hearing grossly intact. MOUTH: Oropharynx is normal. NECK: No adenopathy, no JVD. CHEST: Chest with clear breath sounds bilaterally. No wheezes, rales, or rhonchi. CARDIAC: Regular rate and rhythm. S1 and S2, without murmurs, gallops, or rubs. VASCULAR: No Edema. Peripheral pulses normal and equal in all extremities. ABDOMEN: Soft, non tender and non distended. No rebound or guarding, and no masses palpated. Bowel Sounds normal. MUSCULOSKELETAL: Good range of motion of all major joints. Extremities without clubbing, cyanosis or edema. NEUROLOGIC EXAM: Alert and oriented x 4. no focal sensory or strength deficits. PSYCHIATRIC: Mood normal. SKIN: detail exam as documented in skin assessment - Constitutional Vitals: Temp Pulse Resp BP Pulse Ox 98 F 80 15 112/74 99 02/18/22 06:27 02/19/22 06:20 02/19/22 06:20 02/19/22 06:20 02/19/22 06:20 Plan Follow up with: FRANKLIN STROUD MD [Primary Care Provider] - 3-5 Days
--- NOTE | 2022-02-19 13:19 | Electrocardiograph Report ---
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
[2022-02-19] MEDS ORDERED: INSULIN GLARGINE 100 UNITS/ML SUB-Q SCH (22:00)
[2022-02-19] MEDS: FAMOTIDINE 20 MG/2 ML INJ IV SCH ×2 (23:42→23:56)
[2022-02-20 06:44] VITALS: BP 108/74
[2022-02-20] MEDS: INSULIN LISPRO 100 UNIT/ML SUB-Q SCH ×3 (07:30)
[2022-02-20] MEDS ORDERED: FAMOTIDINE 20 MG TAB PO SCH (10:00)
== END 2022-02-20 12:00 | disposition home or self-care (01) | DRG 637 ==
LOC: ED 06:26 → CC1 15:37
PROVIDERS: ADMIT Internal Medicine; ATTEND Internal Medicine
DX: E10.10 Type 1 diabetes mellitus with ketoacidosis without coma (principal); G93.41 Metabolic encephalopathy; N17.0 Acute kidney failure with tubular necrosis; R07.89 Other chest pain; E87.1 Hypo-osmolality and hyponatremia; E87.5 Hyperkalemia; D72.829 Elevated white blood cell count, unspecified; Z87.891 Personal history of nicotine dependence
CPT/HCPCS: 36415; 71045; 78580; 80048; 80053; 81001; 82805; 82962; 83735; 84100; 84703; 85025; 93005; G0378; J3480; J3490; Q9967; A9540; J1644; J1815; J2405; J3010; J7030; J7042